=== PATIENT | female | born 1965 | race Caucasian/White ===

== ENCOUNTER → 2017-01-05 | Outpatient (CLI) | payer BC ==
--- NOTE | 2017-01-06 08:56 | Diagnostic Imaging Report ---
Bilateral screening mammogram The current study was also evaluated with a Computer Aided Detection (CAD) system. Indication: Screening. No current complaints stated on the questionnaire. COMPARISON: 12/06/15 FINDINGS: The breasts are composed of heterogeneously dense parenchyma which may decrease mammographic sensitivity. There is a biopsy clip in the outer aspect of the posterior central aspect of the left breast and more laterally an area of mild architectural distortion similar to 2010 exam possibly related to prior biopsy causing mild scarring. The right breast is stable. Allowing for technique and positional differences, no suspicious change is seen. IMPRESSION: No significant change. ACR BI-RADS Category 2: Benign findings. Result letter will be mailed to the patient. Note: At least 10% of breast cancer is not imaged by mammography. Dictated by: Dictated on workstation # [id number]
== END ==
LOC: RAD 12:52
PROVIDERS: ATTEND Emergency Medicine
DX: Z12.31 Encounter for screening mammogram for malignant neoplasm of breast (principal)
CPT/HCPCS: 77067

== ENCOUNTER → 2017-11-11 | Outpatient (CLI) | payer BC ==
[~2017-11-11] MED LIST: BARIUM SUSPENSION 105% (LIQUID POLIBAR PLUS) 240 ML/DOSE PO ONE; BARIUM SUSPENSION 60% (LIQUID EZ PAQUE) 240 ML DOSE PO ONE
--- NOTE | 2017-11-11 10:42 | Diagnostic Imaging Report ---
INDICATION: Reflux. TECHNIQUE: The patient ingested effervescent crystals as well as thin and thick barium and imaging of the esophagus, stomach, and proximal small bowel was performed. A total of 1 minute and 9 seconds of fluoroscopic time was utilized. FINDINGS: The esophagus has a smooth contour. No mass or stricture is identified. Mild gastroesophageal reflux is demonstrated. No hiatal hernia is seen. The stomach has normal configuration. There is prompt emptying into the small bowel. No mass or ulceration is identified. The duodenal bulb is without deformity. IMPRESSION: Mild gastroesophageal reflux. No other significant abnormality is seen. Dictated by: Dictated on workstation # [id number]
== END ==
LOC: RAD 08:54
PROVIDERS: ATTEND Surgery
DX: K21.9 Gastro-esophageal reflux disease without esophagitis (principal)
CPT/HCPCS: 74241

== ENCOUNTER → 2018-03-24 | Outpatient (CLI) | payer BC ==
--- NOTE | 2018-03-25 17:55 | Diagnostic Imaging Report ---
INDICATION: Routine screening. Comparison is made with prior study from 01/05/2017 and 12/06/2015. 2-D and 3-D bilateral screening mammography was performed. The current study was also evaluated with a Computer Aided Detection (CAD) system. FINDINGS: Both breasts remain heterogeneously dense, limiting the sensitivity of mammography. A biopsy clip in the left breast is again noted. There are occasional benign calcifications. No dominant mass or malignant-appearing microcalcifications are seen. The axillae are unremarkable. IMPRESSION: No mammographic features suspicious for malignancy are identified. ACR BI-RADS Category 2: Benign findings. Result letter will be mailed to the patient. Note: At least 10% of breast cancer is not imaged by mammography. Dictated by: Dictated on workstation # [id number]
== END ==
LOC: RAD 13:25
PROVIDERS: ATTEND Emergency Medicine
DX: Z12.31 Encounter for screening mammogram for malignant neoplasm of breast (principal)
CPT/HCPCS: 77067

== ENCOUNTER → 2020-02-16 | Outpatient (CLI) | payer BC ==
--- NOTE | 2020-02-19 09:42 | Diagnostic Imaging Report ---
INDICATION: Routine screening. COMPARISON: 03/24/2018 and 01/05/2017. TECHNIQUE: 2D and 3D bilateral screening mammography was performed with CAD. FINDINGS: Both breasts remain heterogeneously dense, limiting the sensitivity of mammography. A circumscribed density in the upper outer left breast at anterior depth shows some increase in size. This is likely an enlarging cyst. Further evaluation with ultrasound is recommended for confirmation. There are benign calcifications. A biopsy clip in the left breast is again noted. No malignant appearing microcalcifications are seen. The axillae are unremarkable. IMPRESSION: There is an enlarging circumscribed density in the upper outer left breast 4 to 5 cm from the nipple. This most likely represents an enlarging cyst; however, further evaluation with ultrasound is recommended for confirmation. ACR BI-RADS Category 0: Incomplete. (Needs additional imaging evaluation). Result letter will be mailed to the patient. Note: At least 10% of breast cancer is not imaged by mammography. Dictated by: Dictated on workstation # [id number]
== END ==
LOC: RAD 13:00
PROVIDERS: ATTEND Emergency Medicine
DX: Z12.31 Encounter for screening mammogram for malignant neoplasm of breast (principal); N63.21 Unspecified lump in the left breast, upper outer quadrant
CPT/HCPCS: 77063; 77067

== ENCOUNTER → 2021-06-09 | Outpatient (CLI) | payer BC ==
--- NOTE | 2021-06-09 14:01 | Diagnostic Imaging Report ---
INDICATION: Palpable lump right breast. Correlation is made with prior mammogram from 02/16/2020 and 03/24/2018. 2-D and 3-D bilateral diagnostic mammography was performed with CAD. Both breasts are heterogeneously dense, limiting sensitivity of mammography. There are biopsy changes in the left breast. Circumscribed nodule in the outer left breast is stable. BB marker was placed at the area of palpable abnormality in the medial right breast. No underlying abnormality is seen. Right breast parenchymal appears stable. No new mass or malignant-appearing microcalcifications are seen. Axillae are unremarkable. IMPRESSION: No mammographic features suspicious for malignancy are identified. Even so, directed sonographic interrogation of the area palpable abnormality in the medial right breast is recommended and will be performed today. BI-RADS 0 ACR BI-RADS Category 0: Incomplete. (Needs additional imaging evaluation). Result letter will be mailed to the patient. Note: At least 10% of breast cancer is not imaged by mammography. Dictated by: Dictated on workstation # [id number]
--- NOTE | 2021-06-09 14:38 | Diagnostic Imaging Report ---
INDICATION: Palpable lump in the right breast. COMPARISON: Correlation is made with the diagnostic mammogram from earlier this same day. FINDINGS: Sonographic interrogation of the area of lump in the medial right breast was performed. No solid or cystic mass is detected. No sonographic abnormality is detected. IMPRESSION: No sonographic abnormality is detected. Continued close clinical and self breast exams are recommended to confirm stability of the palpable abnormality in the medial right breast. ACR BI-RADS Category 1: Negative. Dictated by: Dictated on workstation # [id number]
== END ==
LOC: RAD 10:15
PROVIDERS: ATTEND Emergency Medicine
DX: N63.10 Unspecified lump in the right breast, unspecified quadrant (principal)
CPT/HCPCS: 76642; 77066; G0279; 77062

== ENCOUNTER → 2022-07-02 | Outpatient (CLI) | payer BC ==
--- NOTE | 2022-07-02 12:45 | Diagnostic Imaging Report ---
Indication: Routine screening. Comparison is made with prior mammograms from 06/09/2021 and 02/16/2020. 2-D and 3-D bilateral screening mammography was performed with CAD. Scattered fibroglandular densities are identified bilaterally. Ovoid density in the outer left breast is stable. There is a biopsy marker in the central left breast. No new mass or malignant-appearing microcalcifications are identified. Axillae are unremarkable. IMPRESSION: BI-RADS Category 2 No mammographic features suspicious for malignancy are identified. ACR BI-RADS Category 2: Benign findings. Result letter will be mailed to the patient. Note: At least 10% of breast cancer is not imaged by mammography. Dictated by: Dictated on workstation # [id number]
== END ==
LOC: RAD 09:45
PROVIDERS: ATTEND Emergency Medicine
DX: Z12.31 Encounter for screening mammogram for malignant neoplasm of breast (principal)
CPT/HCPCS: 77063; 77067